=== PATIENT | male | born 1985 | race Caucasian/White ===

== ENCOUNTER 2017-07-17 19:13 | Emergency (ER) | payer OTHER ==
[~2017-07-17] VITALS: Ht 188 cm; Wt 86.2 kg
[~2017-07-17 19:13] MED LIST: Cyclobenzaprine5 MG PO; HYDACE5 PO; Norco 5-325 Ta1 EACH PO; Prednisone20 MG PO
[2017-07-17] MEDS ORDERED: CEPH500 PO (22:02)
== END 2017-07-17 22:16 | disposition home or self-care (01) ==
LOC: ER 19:13
DX: S61.412A Laceration without foreign body of left hand, initial encounter (principal); W26.8XXA Contact with other sharp object(s), not elsewhere classified, initial encounter; Z79.899 Other long term (current) drug therapy; Z79.52 Long term (current) use of systemic steroids; F17.200 Nicotine dependence, unspecified, uncomplicated
CPT/HCPCS: 12001; 73130; 90471; 90714; 99283